=== PATIENT | male | born 1935 | race Caucasian/White ===

== ENCOUNTER 2017-03-04 16:59 | Emergency (ER) | payer OTHER ==
[~2017-03-04] VITALS: Ht 162.6 cm; Wt 58.2 kg
[~2017-03-04 16:59] MED LIST: ADULT LOW STREN81 M2 PO; ASPIR 8181 M1 PO; BP MED; PRAVASTATIN SOD40 MG PO
[2017-03-04 17:51] LABS: BASOPHIL COUNT 0.1 K/uL (0-0.1); EOSINOPHIL (%) 5.8 % (0-5); EOSINOPHIL COUNT 0.5 K/uL (0-0.3); HEMATOCRIT 39.4 % (38.0-50.0); IMMATURE GRANULOCYTE (%) 0.7 % (0.0-0.7); IMMATURE GRANULOCYTE COUNT 0.1 K/uL; INSTRUMENT ABS NEUTROPHIL CT 3.9 K/uL; LYMPHOCYTE COUNT 2.9 K/uL (1.0-2.8); MCH 31.9 PG (29.0-34.0); MCHC 34.8 G/DL (30.0-36.0); MCV 91.6 FL (86-99); MONOCYTE (%) 9.6 % (3-12); MONOCYTE COUNT 0.8 K/uL (0-0.8); NEUTROPHIL (%) 47.5 % (45-76); NEUTROPHIL COUNT 3.9 K/uL (1.8-6.4); PLATELET COUNT 185 K/uL (156-360); RBC DIS.WIDTH-CV 11.9 % (11.8-14.6); WHITE BLOOD COUNT 8.3 K/uL (4.1-10.2)
[2017-03-04 17:57] LABS: PROTHROMBIN TIME 11.5 SEC (10.2-12.9)
[2017-03-04 17:59] LABS: PTT 24.6 SEC (25-37)
[2017-03-04 18:02] LABS: CHLORIDE 92 mEq/L (99-109); POTASSIUM 3.9 mEq/L (3.7-5.4); SODIUM 125 mEq/L (136-147)
[2017-03-04 18:03] LABS: MAGNESIUM 1.5 mg/dL (1.3-2.7)
[2017-03-04 18:05] LABS: GLUCOSE 111 mg/dL (70-99)
[2017-03-04 18:06] LABS: ANION GAP 14 MEQ/L (2-14)
[2017-03-04 18:07] LABS: TOTAL BILIRUBIN 0.5 mg/dL (0.0-1.0)
[2017-03-04 18:08] LABS: ALKALINE PHOSPHATASE 83 IU/L (3-129); SERUM ETHYL ALCOHOL 266 mg/dL
[2017-03-04 18:09] LABS: GFR ESTIMATE (CALCULATED) > 59 mL/min/
[2017-03-04 18:10] LABS: UREA NITROGEN (BUN) 14 mg/dL (9-23)
[2017-03-04 18:15] LABS: TROP-I INTERPRETATION NEGATIVE; TROPONIN-I 0.01 ng/mL (0.0-0.30)
[2017-03-04 21:33] VITALS: BP 175/99
== END 2017-03-04 21:37 | disposition home or self-care (01) ==
LOC: EME 16:59
PROVIDERS: Emergency Medicine
DX: S01.81XA Laceration without foreign body of other part of head, initial encounter (principal); F10.10 Alcohol abuse, uncomplicated; E87.1 Hypo-osmolality and hyponatremia; W19.XXXA Unspecified fall, initial encounter; Y90.8 Blood alcohol level of 240 mg/100 ml or more; Z23 Encounter for immunization; I10 Essential (primary) hypertension; Z79.82 Long term (current) use of aspirin; Z88.0 Allergy status to penicillin
CPT/HCPCS: 70450; 80053; 83735; 84484; 85025; 85610; 85730; 93005; 99281; 99284; G0480; J7030